=== PATIENT | male | born 1980 | race Caucasian/White ===

== ENCOUNTER 2020-09-12 12:44 | Outpatient (REF) | payer MEDICAID, SELFPAY ==
--- NOTE | 2020-09-12 | PFT_ITS ---
FLOWS: FEV1 86% of predicted at 3.10 L. FVC 75% of predicted at 3.38 L. FEV1 to FVC ratio of 0.92. No bronchodilator response. LUNG VOLUMES: Total lung capacity 74% of predicted at 4.43 L. Residual volume 62% of predicted at 0.97 L. Slow vital capacity 79% of predicted at 3.46 L. Expiratory reserve volume 33% of predicted at 0.43 L. Diffusion capacity is normal. IMPRESSION: Mild restrictive ventilatory defect. No bronchodilator response. Decreased expiratory reserve volume suggests extrathoracic restriction, likely secondary to abdominal obesity. Jacques Aranda MD AP/[facility] / [id number]
== END 2020-09-12 12:45 | disposition home or self-care (01) ==
LOC: HO.RESP 12:44
PROVIDERS: Visit Provider Internal Medicine
DX: R06.02 Shortness of breath (principal)
CPT/HCPCS: 94060; 94727; 94729

== ENCOUNTER 2021-04-10 14:02 | Outpatient (REF) | payer MEDICAID, SELFPAY ==
--- NOTE | ~2021-04-10 | US_ITS ---
EXAMINATION: US VENOUS ULTRASOUND WITH DOPPLER LOWER EXTREMITY, RIGHT CLINICAL INFORMATION: Right lower extremity pain. Assess for occult DVT. COMPARISON: None TECHNIQUE: Ultrasound of the deep veins is performed from the hip to the calf with compression sonography and color and pulse Doppler assessment. Spectral analysis with color-flow imaging is performed. FINDINGS: There is normal venous compression and respiratory variation and augmented flow. The visualized common femoral vein, superficial femoral vein, profunda femoral vein, popliteal vein, and the trifurcation region shows no evidence of deep venous thrombosis. No popliteal fossa cyst demonstrated. US/US venous duplex LE RT IMPRESSION: No DVT demonstrated in the right lower extremity.
== END 2021-04-10 14:03 | disposition home or self-care (01) ==
LOC: HO.HMGCX 14:02
PROVIDERS: PCP Nurse Practitioner Primary Care; Visit Provider Emergency Medicine
DX: M79.604 Pain in right leg (principal)
CPT/HCPCS: 93971

== ENCOUNTER 2023-03-09 12:17 | Outpatient (REF) | payer MEDICAID, SELFPAY ==
[2023-03-09 13:37] LABS: MANUAL DIFF FLAG NO
[2023-03-09 13:58] LABS: Basophils Absolute Auto 0.1 X10*3/uL (0.0-0.2); Basophils Percent Auto 0.8 % (0-2); Eosinophils Absolute Auto 0.1 X10*3/uL (0.0-0.4); Eosinophils Percent Auto 1.5 % (0-4); Hematocrit 45.2 % (42.0-52.0); Hemoglobin 15.1 g/dl (14.0-18.0); Imm Gran Abs Auto 0.01 X10*3/uL (0.00-0.03); Imm Gran Pct Auto 0.2 % (0.0-0.4); Lymphocytes Absolute Auto 1.7 X10*3/uL (1.2-4.9); Lymphocytes Percent Auto 28.9 % (20-40); Mean Corpuscular HGB Conc 33.4 g/dl (31.0-36.0); Mean Corpuscular Hemoglobin 30.9 pg (27.0-33.0); Mean Corpuscular Volume 92.6 fL (80.0-98.0); Monocytes Absolute Auto 0.6 X10*3/uL (0.1-1.2); Monocytes Percent Auto 9.6 % (2-11); Neutrophils Absolute Auto 3.5 x10*3/uL (2.0-8.3); Platelet Count 334 X10*3/uL (160-400); Red Blood Count 4.88 X10*6/uL (4.60-5.80); Red Cell Distribution Width 12.1 % (11.0-16.0); White Blood Count 5.9 X10*3/uL (4.8-10.8)
[2023-03-09 18:49] LABS: Alanine Aminotransferase 27 U/L (0-40); Albumin Level 4.7 g/dL (3.5-5.0); Alkaline Phosphatase 111 U/L (39-117); Anion Gap 14 (12-20); Aspartate Amino Transferase 19 U/L (5-37); Bilirubin Total 0.4 mg/dL (0.0-1.0); Blood Urea Nitrogen 14 mg/dL (9-16); Calcium 10.3 mg/dL (8.4-10.2); Carbon Dioxide 27 mmol/L (22-29); Chloride 104 mmol/L (96-108); Estimated Glomerular Filt Rate > 60; Glucose Random 94 mg/dL (60-115); Sodium 140 mmol/L (135-145); Total Protein 7.9 g/dL (6.5-8.0)
[2023-03-12 16:43] LABS: H Pylori Breath Test Negative (Negative)
== END 2023-03-09 12:18 | disposition home or self-care (01) ==
LOC: HO.HHCL 12:17
PROVIDERS: Visit Provider Registered Nurse
DX: Z00.00 Encounter for general adult medical examination without abnormal findings (principal); Z12.2 Encounter for screening for malignant neoplasm of respiratory organs; K21.9 Gastro-esophageal reflux disease without esophagitis
CPT/HCPCS: 36415; 80053; 83013; 85025

== ENCOUNTER 2023-11-04 11:56 | Outpatient (REF) | payer MEDICAID, SELFPAY ==
--- NOTE | ~2023-11-04 | XR_ITS ---
EXAMINATION: XR SHOULDER, LEFT CLINICAL INFORMATION: Chronic left shoulder pain COMPARISON: None available. TECHNIQUE: AP external rotation, Grashey, scapular Y, and axillary views of the left shoulder. FINDINGS: The bones and soft tissues are normal. No fracture. Glenohumeral and acromioclavicular alignment is anatomic with normal joint space. No abnormal soft tissue calcifications. XR/XR shoulder LT min 2V IMPRESSION: Normal left shoulder.
== END 2023-11-04 11:57 | disposition home or self-care (01) ==
LOC: HO.HHCX 11:56
PROVIDERS: Visit Provider Family Medicine
DX: M25.512 Pain in left shoulder (principal); G89.29 Other chronic pain
CPT/HCPCS: 73030